=== PATIENT | female | born 1945 | race Caucasian/White ===

== ENCOUNTER → 2018-12-19 | Outpatient (REF) | payer MEDICARE, MEDICAID ==
[2018-12-19 16:50] LABS: BASO # 0.2 10^3/uL (0.0-0.2); BASO % 1.4 % (0.0-1.0); EOS # 0.4 10^3/uL (0.0-0.50); EOS % 3.1 % (0.0-3.0); HEMATOCRIT 43.4 % (36.0-47.0); HEMOGLOBIN 14.1 g/dl (12.0-15.5); LYMPH # 1.7 10^3/uL (1.5-4.5); LYMPH % 14.9 % (24.0-44.0); MEAN CORPUSCULAR HEMOGLOBIN 29.9 pg (27.0-33.0); MEAN CORPUSCULAR HGB CONC 32.5 g/dl (32.0-36.5); MEAN CORPUSCULAR VOLUME 91.9 fl (80.0-96.0); MONO # 1.3 10^3/uL (0.0-0.8); MONO % 10.9 % (0.0-5.0); NEUTROPHILS # 7.9 10^3/uL (1.8-7.7); NEUTROPHILS % 69.2 % (36.0-66.0); PLATELET COUNT, AUTOMATED 615 10^3/uL (150-450); RED BLOOD COUNT 4.72 10^6/uL (4.00-5.40); WHITE BLOOD COUNT 11.4 10^3/uL (4.0-10.0)
[2018-12-19 17:41] LABS: ERYTHROCYTE SEDIMENTATION RATE 28 mm/hr (0-30)
== END ==
LOC: M LABDRAW1 11:23
PROVIDERS: ATTEND Orthopaedic Surgery
DX: M25.475 Effusion, left foot (principal)

== ENCOUNTER → 2019-01-13 | Outpatient (CLI) | payer MEDICARE, MEDICAID ==
--- NOTE | 2019-01-14 09:59 | REP ---
MRI LEFT ANKLE: TECHNIQUE: Sagittal proton density, STIR, axial proton density fat sat, T1, coronal proton density, STIR. The Achilles, anterior tibial, posterior tibial, flexor hallucis longus, flexor digitorum longus and peroneal tendons are all intact with no significant tenosynovitis. The anterior and posterior talofibular, calcaneal fibular, deltoid, and tibiofibular ligaments appear intact. Plantar fascia is unremarkable. Plantar tendon is intact. No significant abnormal signal seen in the sinus tarsi. No ganglion cyst is seen. There is a normal amount of joint fluid. There is diffuse superficial soft tissue edema, which is nonspecific. Diffuse marrow edema is seen in all of the visualized metatarsals and tarsal bones, without significant marrow edema in the distal tibial or fibula, nor in the talus or calcaneus. IMPRESSION: No evidence of tendon or ligament tear. Diffuse marrow edema of the tarsal bones and visualized metatarsals, nonspecific. Diffuse superficial soft tissue edema of the ankle. Electronically Signed by Jose De Jesus Newton MD 01/16/2019 11:41 A
== END ==
LOC: M RAD 01-12 07:06 → M PLARAD 15:08
PROVIDERS: ATTEND Orthopaedic Surgery
DX: M25.472 Effusion, left ankle (principal)

== ENCOUNTER → 2023-11-17 | Outpatient (CLI) | payer OTHER, MEDICAID | LOC: M PLAIMG 14:21 | PROVIDERS: ATTEND Physician Assistant Surgical | DX: M51.36 Other intervertebral disc degeneration, lumbar region (principal) ==